=== PATIENT | male | born 1985 | race Caucasian/White ===

== ENCOUNTER 2018-07-26 19:45 | Inpatient (IN) | payer OTHER ==
[~2018-07-26] VITALS: Ht 172.7 cm; Wt 70.3 kg
[~2018-07-26 19:45] MED LIST: BACTRIM DS TAB1 EACH PO; HYDROCODON-ACE1 EAC7 PO; KEFLEX500 MG PO; NORCO 5-325 TA1 EACH PO; SENNA S TABLET1 EACH PO; TRAMADOL 50 MG50 MG PO
[2018-07-26 19:54] VITALS: BP 125/86
[2018-07-26 20:37] LABS: ABSOLUTE BASOPHILS 0.1 thou/uL (0.0-0.2); ABSOLUTE LYMPHOCYTES 1.8 thou/uL (0.8-5.3); ABSOLUTE MONOCYTES 0.8 thou/uL (0.0-1.2); ABSOLUTE NEUTROPHILS 9.8 thou/uL (1.6-8.1); BASOPHILS 0.8 %; EOSINOPHILS 0.2 %; HEMOGLOBIN 14.2 gm/dL (14.0-18.0); LYMPHOCYTES 14.1 %; MCH 31.3 pg (26.0-34.0); MCHC 34.6 g/dL (28.0-37.0); MCV 90.3 fL (80.0-100.0); MONOCYTES 6.2 %; MPV 7.2 fl. (7.2-11.1); NUCLEATED RBCS 0 /100WBC; PLATELET COUNT* 234 thou/uL (150-400); POLYS 78.7 %; RBC 4.54 mil/uL (4.50-6.00); RDW-CV 13.1 % (10.5-14.5); WBC 12.5 thou/uL (4.0-11.0)
[2018-07-26 21:07] LABS: ALBUMIN 4.1 g/dL (3.4-5.0); CALCIUM 8.8 mg/dL (8.5-10.1); CREATININE 1.1 mg/dL (0.6-1.3); POTASSIUM 3.9 mmol/L (3.5-5.1); TOTAL BILIRUBIN 1.3 mg/dL (<0.1-1.0); TOTAL PROTEIN 8.3 g/dL (6.4-8.2)
[2018-07-26 21:10] VITALS: BP 126/66
[2018-07-26 21:20] VITALS: BP 121/71
[2018-07-27 07:50] VITALS: BP 111/71
[2018-07-27 23:40] VITALS: BP 124/78
[2018-07-28 07:50] VITALS: BP 117/60
[2018-07-28 08:33] LABS: ABSOLUTE LYMPHOCYTES 1.1 thou/uL (0.8-5.3); ABSOLUTE MONOCYTES 0.4 thou/uL (0.0-1.2); ABSOLUTE NEUTROPHILS 4.4 thou/uL (1.6-8.1); BASOPHILS 0.6 %; EOSINOPHILS 0.8 %; HEMATOCRIT 43.4 % (42.0-52.0); HEMOGLOBIN 14.7 gm/dL (14.0-18.0); LYMPHOCYTES 18.5 %; MCH 30.7 pg (26.0-34.0); MCHC 33.9 g/dL (28.0-37.0); MCV 90.6 fL (80.0-100.0); MONOCYTES 7.3 %; MPV 7.1 fl. (7.2-11.1); NUCLEATED RBCS 0 /100WBC; PLATELET COUNT* 265 thou/uL (150-400); POLYS 72.8 %; RBC 4.79 mil/uL (4.50-6.00)
[2018-07-28 17:22] VITALS: BP 118/70
[2018-07-28 20:00] VITALS: BP 141/90
[2018-07-29 07:52] VITALS: BP 130/74
[2018-07-29 16:00] VITALS: BP 116/80
[2018-07-30 00:27] VITALS: BP 104/43
[2018-07-30 04:14] LABS: ABSOLUTE BASOPHILS 0.1 thou/uL (0.0-0.2); ABSOLUTE EOSINOPHILS 0.1 thou/uL (0.0-0.7); ABSOLUTE LYMPHOCYTES 2.9 thou/uL (0.8-5.3); ABSOLUTE MONOCYTES 0.6 thou/uL (0.0-1.2); ABSOLUTE NEUTROPHILS 2.5 thou/uL (1.6-8.1); BASOPHILS 0.9 %; EOSINOPHILS 2.3 %; HEMATOCRIT 38.3 % (42.0-52.0); HEMOGLOBIN 13.2 gm/dL (14.0-18.0); LYMPHOCYTES 46.5 %; MCH 31.5 pg (26.0-34.0); MCHC 34.6 g/dL (28.0-37.0); MONOCYTES 9.1 %; MPV 6.9 fl. (7.2-11.1); NUCLEATED RBCS 0 /100WBC; PLATELET COUNT* 267 thou/uL (150-400); POLYS 41.2 %; RDW-CV 12.6 % (10.5-14.5); WBC 6.1 thou/uL (4.0-11.0)
[2018-07-30 04:25] LABS: CALCIUM 8.3 mg/dL (8.5-10.1); CREATININE 0.8 mg/dL (0.6-1.3); POTASSIUM 3.4 mmol/L (3.5-5.1)
[2018-07-30 08:00] VITALS: BP 114/70
--- NOTE | 2018-07-30 11:04 | CON ---
[address] [address] CONSULTATION Name: NICOLAS MICHAEL Room: [address] [place] .R.#: [id number] Admission: 07/26/18 Attend Phys: Angela Luna MD Discharge: Date of : 87 Report #: [id number] THIS REPORT FOR: //name// CC: [facility] physician/PCP Angela Luna DATE OF SERVICE: 07/29/2018 TYPE OF REPORT: Infectious disease consultation. ATTENDING PHYSICIAN: Bhavani Sanchez M.D. REASON FOR EVALUATION: Right lower extremity skin and soft tissue infection with superficial abscess involving the lateral aspect of the knee site. HISTORY OF PRESENT ILLNESS: Chart reviewed, the patient examined. This is a 33-year-old with history of MRSA skin and soft tissue infection involving his face and left arm, who presented with complaints of painful inflammatory eruption that was increasing in size in spite of taking antibiotics, specifically Bactrim. He has no history of MRSA. Due to its progressive nature, he was admitted. He did note he had an "ingrown hair that he pulled out perhaps squeezed. He has significant amount of pain and was difficult to ambulate and bear weight. It is not clear he had systemic illness. No fevers or chills. Has some mild GI related side effects, was evaluated including blood cultures, which are sterile thus far. Culture from the site is in progress. MRI of the right knee show extensive edema throughout the lateral subcutaneous fat beginning in the level of the distal femoral diaphysis and extending inferiorly to the level of proximal tibial diaphysis, roughly 15 cm in length, 10 cm anterior posterior consistent with a severe cellulitis. At that point, there was no rim enhancing fluid collection and no evidence of deeper involvement specifically myositis or osteomyelitis. He was empirically started on vancomycin. He notes clinical improvement. ALLERGIES: To IODINE and SHELLFISH. CURRENT MEDICATIONS: Include vancomycin, hydrocodone, ibuprofen, acetaminophen, ceftriaxone, fentanyl and ondansetron. PAST MEDICAL HISTORY: As described above, history of asthma, although he does not take any medicines, previous history of MRSA skin and soft tissue infection and does have a history of depression, previous cholecystectomy and tonsillectomy. SOCIAL HISTORY: Chews tobacco 10 years. No ethanol. No illicit drug use. FAMILY HISTORY: [place] [id number] CONSULTATION Name: MICHAELNICOLASEstefani SEE Room: [address]#: [id number] Admission: 07/26/18 Attend Phys: Angela Luna MD Discharge: Date of : 87 Report #: [id number] REVIEW OF SYSTEMS: Denies any significant pulmonary-related complaints. Otherwise, unremarkable 10-point review of systems with exception noted in history of present illness. PHYSICAL EXAMINATION: GENERAL: Pleasant, alert, cooperative, in mild distress, appears to be generally well nourished. VITAL SIGNS: Temperature 97.8, pulse 66, respirations 16 and blood pressure 130/74. SKIN: Warm and dry. No rashes. HEENT: Normocephalic. Extraocular muscles intact. NECK: Supple. LUNGS: Clear to auscultation. HEART: Regular rate and rhythm without murmur. ABDOMEN: Soft, nontender and nondistended. There are no peritoneal signs. EXTREMITIES: Right lower extremity lateral to the knee is most evident in terms of inflammation. There is a superficial eschar with somewhat of a heaped up area, is actually minimally tender. There is no purulent drainage. No fluctuance that I can appreciate. Distal pulses are intact. GENITOURINARY: Deferred. RECTAL: Deferred. LABORATORY DATA: Initial CBC: White count of 12.5, H and H 14.2 and 41.0 and platelets of 234. Electrolytes: Sodium 139, potassium 3.9, chloride 101, bicarbonate is 28, BUN and creatinine 13 and 1.1 and glucose of 115. Total protein of 8.3, albumin of 4.1. Lactic acid 1.0. Blood cultures are sterile thus far collected at time of admission on the . Culture of this site, Gram stain showed no organisms, no white cells. RADIOLOGICAL DATA: MRI of the knee as noted above. ASSESSMENT AND PLAN: Skin and soft tissue infection involving the mid portion of the right lower extremity lateral aspect. Certainly, all consistent with methicillin-susceptible Staphylococcus aureus. Apparently, he has responded clinically to the current combination therapy and apparently did not respond to trimethoprim sulfamethoxazole. We will discuss with Dr. Sanchez, try to obtain linezolid to complete the prescribed course of therapy. Pending labs. Thank you, we will follow just expectantly. <ELECTRONICALLY SIGNED> By: Kian Sanderson MD 07/30/18 [id number] Sanderson MD /nt
[2018-07-30 15:27] VITALS: BP 114/70
[2018-07-30] MEDS ORDERED: ZYVOX600 MG PO (15:32)
== END 2018-07-30 15:47 | disposition home or self-care (01) | DRG 603 ==
LOC: M.ERS 19:45 → M.3W 20:23 → M.TBA-ER 20:23 → M.3W 21:18
PROVIDERS: Family Medicine; Internal Medicine; Nurse Practitioner Family; ADMIT Internal Medicine
DX: L03.115 Cellulitis of right lower limb (principal); M86.8X6 Other osteomyelitis, lower leg; J45.909 Unspecified asthma, uncomplicated; F32.9 Major depressive disorder, single episode, unspecified; F17.220 Nicotine dependence, chewing tobacco, uncomplicated; F11.90 Opioid use, unspecified, uncomplicated; L02.415 Cutaneous abscess of right lower limb; Z90.49 Acquired absence of other specified parts of digestive tract; Z91.013 Allergy to seafood; Z91.041 Radiographic dye allergy status

== ENCOUNTER 2020-07-16 19:12 | Emergency (ER) | payer OTHER ==
[~2020-07-16] VITALS: Ht 172.7 cm; Wt 69.0 kg
[~2020-07-16 19:12] MED LIST changes: +ZYVOX600 MG PO
[2020-07-16 19:23] VITALS: BP 133/81
[2020-07-16] MEDS ORDERED: BACTRIM DS TAB1 EACH PO (19:43)
[2020-07-16] MEDS ORDERED: HYDROXYZINE HCL25 M2 PO (19:43)
[2020-07-16] MEDS ORDERED: TRIAMCINOLONE A80 G2 TOP (19:43)
== END 2020-07-16 19:53 | disposition home or self-care (01) ==
LOC: M.ERS 19:12
DX: S00.86XA Insect bite (nonvenomous) of other part of head, initial encounter (principal); S80.862A Insect bite (nonvenomous), left lower leg, initial encounter; S80.861A Insect bite (nonvenomous), right lower leg, initial encounter; A49.02 Methicillin resistant Staphylococcus aureus infection, unspecified site; J45.909 Unspecified asthma, uncomplicated; Z91.041 Radiographic dye allergy status; Z91.013 Allergy to seafood; Z77.22 Contact with and (suspected) exposure to environmental tobacco smoke (acute) (chronic); Z90.49 Acquired absence of other specified parts of digestive tract; W57.XXXA Bitten or stung by nonvenomous insect and other nonvenomous arthropods, initial encounter; Y93.89 Activity, other specified; Y92.89 Other specified places as the place of occurrence of the external cause; Y99.8 Other external cause status

== ENCOUNTER 2020-08-03 09:15 | Emergency (ER) | payer OTHER ==
[~2020-08-03] VITALS: Ht 172.7 cm; Wt 68.0 kg
[~2020-08-03 09:15] MED LIST changes: +HYDROXYZINE HCL25 M2 PO; +TRIAMCINOLONE A80 G2 TOP
[2020-08-03 10:18] LABS: ABSOLUTE LYMPHOCYTES 1.3 thou/uL (0.8-5.3); ABSOLUTE MONOCYTES 0.9 thou/uL (0.0-1.2); BASOPHILS 0.3 %; EOSINOPHILS 0.5 %; HEMATOCRIT 41.2 % (42.0-52.0); HEMOGLOBIN 14.3 gm/dL (14.0-18.0); MCH 30.5 pg (26.0-34.0); MCHC 34.6 g/dL (28.0-37.0); MCV 88.4 fL (80.0-100.0); MONOCYTES 8.4 %; MPV 5.7 fl. (7.2-11.1); NUCLEATED RBCS 0 /100WBC; PLATELET COUNT* 282 thou/uL (150-400); POLYS 77.8 %; RBC 4.67 mil/uL (4.50-6.00); RDW-CV 12.4 % (10.5-14.5); WBC 10.3 thou/uL (4.0-11.0)
[2020-08-03 10:29] LABS: CREATININE 0.9 mg/dL (0.6-1.3); POTASSIUM 4.3 mmol/L (3.5-5.1)
[2020-08-03 10:34] LABS: ALBUMIN 3.6 g/dL (3.4-5.0); TOTAL BILIRUBIN 0.9 mg/dL (<0.1-1.0); TOTAL PROTEIN 7.8 g/dL (6.4-8.2)
[2020-08-03 11:22] LABS: ESR (SEDRATE) 31 mm/hr (0-15)
[2020-08-03 14:15] VITALS: BP 118/72
== END 2020-08-03 14:19 | disposition left against medical advice (07) ==
LOC: M.ERS 09:15
PROVIDERS: Emergency Medicine Emergency Medical Services
DX: M25.511 Pain in right shoulder (principal); J45.909 Unspecified asthma, uncomplicated; Z90.89 Acquired absence of other organs; Z90.49 Acquired absence of other specified parts of digestive tract; Z86.14 Personal history of Methicillin resistant Staphylococcus aureus infection; Z91.041 Radiographic dye allergy status; Z91.013 Allergy to seafood; Z53.29 Procedure and treatment not carried out because of patient's decision for other reasons